=== PATIENT | female | born 1975 | race Caucasian/White ===

== ENCOUNTER 2021-04-13 13:24 | Emergency (ER) | payer OTHER, SELFPAY ==
--- NOTE | ~2021-04-13 | XR_ITS ---
EXAMINATION: XR ELBOW, LEFT XR ELBOW, RIGHT XR HAND-WRIST, LEFT XR HAND-WRIST, RIGHT CLINICAL INFORMATION: History of injury. Pain of the elbows, hands and wrists. COMPARISON: Prior radiographs of hand from 10/24/2018 TECHNIQUE: Right elbow, 3 views and left elbow, 3 views Right hand and wrist, 4 views and left hand and wrist, 4 views FINDINGS: Right elbow: Bones, joints and soft tissues are normal. No evidence of arthritis, fracture or subluxation. No elbow joint effusion. Left elbow: Bones, joints and soft tissues are normal. Right hand and wrist: Bones have normal alignment throughout the hand and wrist. No acute fracture or subluxation. Small well-corticated ossicle projects distal to the ulnar styloid. Carpal bones, metacarpals and phalanges are intact and the joint spaces are maintained. No erosions or periostitis. No focal soft tissue swelling. Left hand and wrist: Bones have normal alignment throughout the hand and wrist. The joint spaces are well-preserved. No fracture or subluxation. No erosions or periostitis. No focal soft tissue swelling. XR/XR hand wrist LT IMPRESSION: Normal radiographic examinations of the elbows, hands and wrists. No acute fracture or malalignment.
--- NOTE | ~2021-04-13 | XR_ITS ---
EXAMINATION: XR LUMBAR SPINE XR THORACIC SPINE CLINICAL INFORMATION: History of fall with back pain COMPARISON: None TECHNIQUE: Thoracic spine, AP and lateral views Lumbosacral spine, 3 views FINDINGS: Thoracic spine: There are 12 rib-bearing thoracic vertebra. The thoracic vertebra have normal density, height and alignment. The disc spaces are well-preserved. Mild spondylosis of the partially visualized lower cervical spine. The anterior and posterior elements have an intact appearance. No evidence of acute fracture or subluxation. Soft tissues are unremarkable. Lumbosacral spine: The lumbar vertebra have normal height and alignment. The disc spaces are well-preserved. The facet joints are normal. The sacrum and sacroiliac joints have a normal appearance. Moderate amount of fecal material is present in the nondilated colon. There are two small, 0.3 cm opacities that project over the left kidney and although these are likely bowel contents, it is not possible to exclude any small left renal calculi. XR/XR lumbar spine 2-3V IMPRESSION: * No acute abnormality. No evidence of fracture or malalignment in the thoracic or lumbosacral spine. * Possible small left renal calculi.
--- NOTE | ~2021-04-13 | XR_ITS ---
EXAMINATION: XR LUMBAR SPINE XR THORACIC SPINE CLINICAL INFORMATION: History of fall with back pain COMPARISON: None TECHNIQUE: Thoracic spine, AP and lateral views Lumbosacral spine, 3 views FINDINGS: Thoracic spine: There are 12 rib-bearing thoracic vertebra. The thoracic vertebra have normal density, height and alignment. The disc spaces are well-preserved. Mild spondylosis of the partially visualized lower cervical spine. The anterior and posterior elements have an intact appearance. No evidence of acute fracture or subluxation. Soft tissues are unremarkable. Lumbosacral spine: The lumbar vertebra have normal height and alignment. The disc spaces are well-preserved. The facet joints are normal. The sacrum and sacroiliac joints have a normal appearance. Moderate amount of fecal material is present in the nondilated colon. There are two small, 0.3 cm opacities that project over the left kidney and although these are likely bowel contents, it is not possible to exclude any small left renal calculi. XR/XR thoracic spine 3V IMPRESSION: * No acute abnormality. No evidence of fracture or malalignment in the thoracic or lumbosacral spine. * Possible small left renal calculi.
--- NOTE | ~2021-04-13 | XR_ITS ---
EXAMINATION: XR ELBOW, LEFT XR ELBOW, RIGHT XR HAND-WRIST, LEFT XR HAND-WRIST, RIGHT CLINICAL INFORMATION: History of injury. Pain of the elbows, hands and wrists. COMPARISON: Prior radiographs of hand from 10/24/2018 TECHNIQUE: Right elbow, 3 views and left elbow, 3 views Right hand and wrist, 4 views and left hand and wrist, 4 views FINDINGS: Right elbow: Bones, joints and soft tissues are normal. No evidence of arthritis, fracture or subluxation. No elbow joint effusion. Left elbow: Bones, joints and soft tissues are normal. Right hand and wrist: Bones have normal alignment throughout the hand and wrist. No acute fracture or subluxation. Small well-corticated ossicle projects distal to the ulnar styloid. Carpal bones, metacarpals and phalanges are intact and the joint spaces are maintained. No erosions or periostitis. No focal soft tissue swelling. Left hand and wrist: Bones have normal alignment throughout the hand and wrist. The joint spaces are well-preserved. No fracture or subluxation. No erosions or periostitis. No focal soft tissue swelling. XR/XR elbow RT min 3V IMPRESSION: Normal radiographic examinations of the elbows, hands and wrists. No acute fracture or malalignment.
--- NOTE | ~2021-04-13 | XR_ITS ---
EXAMINATION: XR ELBOW, LEFT XR ELBOW, RIGHT XR HAND-WRIST, LEFT XR HAND-WRIST, RIGHT CLINICAL INFORMATION: History of injury. Pain of the elbows, hands and wrists. COMPARISON: Prior radiographs of hand from 10/24/2018 TECHNIQUE: Right elbow, 3 views and left elbow, 3 views Right hand and wrist, 4 views and left hand and wrist, 4 views FINDINGS: Right elbow: Bones, joints and soft tissues are normal. No evidence of arthritis, fracture or subluxation. No elbow joint effusion. Left elbow: Bones, joints and soft tissues are normal. Right hand and wrist: Bones have normal alignment throughout the hand and wrist. No acute fracture or subluxation. Small well-corticated ossicle projects distal to the ulnar styloid. Carpal bones, metacarpals and phalanges are intact and the joint spaces are maintained. No erosions or periostitis. No focal soft tissue swelling. Left hand and wrist: Bones have normal alignment throughout the hand and wrist. The joint spaces are well-preserved. No fracture or subluxation. No erosions or periostitis. No focal soft tissue swelling. XR/XR elbow LT min 3V IMPRESSION: Normal radiographic examinations of the elbows, hands and wrists. No acute fracture or malalignment.
--- NOTE | ~2021-04-13 | XR_ITS ---
EXAMINATION: XR ELBOW, LEFT XR ELBOW, RIGHT XR HAND-WRIST, LEFT XR HAND-WRIST, RIGHT CLINICAL INFORMATION: History of injury. Pain of the elbows, hands and wrists. COMPARISON: Prior radiographs of hand from 10/24/2018 TECHNIQUE: Right elbow, 3 views and left elbow, 3 views Right hand and wrist, 4 views and left hand and wrist, 4 views FINDINGS: Right elbow: Bones, joints and soft tissues are normal. No evidence of arthritis, fracture or subluxation. No elbow joint effusion. Left elbow: Bones, joints and soft tissues are normal. Right hand and wrist: Bones have normal alignment throughout the hand and wrist. No acute fracture or subluxation. Small well-corticated ossicle projects distal to the ulnar styloid. Carpal bones, metacarpals and phalanges are intact and the joint spaces are maintained. No erosions or periostitis. No focal soft tissue swelling. Left hand and wrist: Bones have normal alignment throughout the hand and wrist. The joint spaces are well-preserved. No fracture or subluxation. No erosions or periostitis. No focal soft tissue swelling. XR/XR hand wrist RT IMPRESSION: Normal radiographic examinations of the elbows, hands and wrists. No acute fracture or malalignment.
[2021-04-13 13:48] VITALS: BP 115/66; PULSE 91; RESP 18; TEMP 35.9; O2SAT 96; BMI 25.0
[2021-04-13 15:36] VITALS: BP 114/67; PULSE 84; RESP 18; TEMP 36.8; O2SAT 95
[2021-04-13 15:53] LABS: UPreg QC Valid YES; Urine Pregnancy NEGATIVE (NEGATIVE)
[2021-04-13] MEDS: Cyclobenzaprine HCl 10 MG TABLET PO (16:16)
--- NOTE | 2021-04-13 16:22 | ED_ITS ---
HPI - Fall General Chief Complaint: Extremity Injury, Upper Stated Complaint: FALL ARM HEAD AND BACK INJ Time Seen by Provider: 04/13/21 14:41 Source: patient Mode of arrival: ambulatory Limitations: no limitations History of Present Illness HPI Narrative: 45-year-old female reports that she was sent to recovery [facility] and she had passed out on 04/04/2021 and she is unsure what actually happened but she reports she got there and she woke up with 2 nurses in her face and she was laying down on her back with her head facing all and she is unsure what happened. Although she reports since then she has been having pain to her head, neck, bilateral arms, upper back and lower back. She denies being on any blood thinners. She reports at that time she was seen at a local ER although did not receive any x-rays and she came here for further evaluation treatment because she continues to have pain. She just was released and got back home today. She denies any other injuries complaints or concerns at this time. MD complaint: fall Onset (ago): day(s) (Approximately 9 days ago) Fall from: standing Fall witnessed: yes, by living facility staff (At the recovery program) Place fall occurred: other (Recovery program) Loss of consciousness: yes Prolonged down time: unclear Location of injury: head, neck and back Severity: moderate Quality: aching Associated symptoms (after fall): headache and neck pain Related Data Previous Rx's Medication Instructions Recorded acetaminophen 500 mg tablet 1,000 mg PO QID PRN #14 tab 04/13/21 (Tylenol Extra Strength) cyclobenzaprine 10 mg tablet 10 mg PO Q8H PRN #14 tab 04/13/21 lidocaine HCl 4 % topical cream 1 appl TOPICAL BID PRN #120 g 04/13/21 (Aspercreme (lidocaine HCl)) Allergies Allergy/AdvReac Type Severity Reaction Status Date / Time aspirin [ASPIRIN] Allergy Unknown HIVES Verified 04/13/21 13:48 Review of Systems Review of Systems: Constitutional : No Fever, No Chills ENT/Mouth : No Ear Pain, No Hoarseness, No sore throat Eyes: No Eye Pain, No Swelling, No Redness, No Foreign Body Cardiovascular : No Chest Pain, No SOB Respiratory : No Cough, No Dyspnea Gastrointestinal : No Nausea, No Vomiting, No Diarrhea, No abdominal Pain Genitourinary : No Dysuria, No Hematuria Musculoskeletal : Positive bilateral elbow/forearm/hand and wrist joint pain, No Myalgias, No Joint Swelling Skin : No Skin lacerations, No rash Neuro : Positive fall with head injury with loss of consciousness with intermittent headaches, No Weakness, No Numbness, No Paresthesias, No Dizziness Psych : No Anxiety/Panic, No Depression Heme/Lymph: no easy bruising, no Lymphadenopathy Endocrine : No Polyuria, No Polydipsia Yes all other systems are reviewed and are negative [facility] Past Medical History Attestation statement: The following information was validated with the patient. Social History Social History Advance Directives: No Advance Directives Information Provided: No Patient : No Physical Exam Vital Signs: Vital Signs: Last Vital Signs Temp 98.2 F 04/13/21 15:36 Pulse 84 04/13/21 15:36 Resp 18 04/13/21 15:36 BP 114/67 04/13/21 15:36 Pulse Ox 95 04/13/21 15:36 Body Mass Index 25.0 vital signs have been reviewed as normal and appeared to be correct. Blood pressure normal. Heart rate normal. Respiration rate normal. Temperature normal. Oxygen saturation normal. Appearance: Alert. Oriented X3. No acute distress. Head: Normal external exam. Normocephalic. Atraumatic. No Clifford signs noted. No raccoon eyes noted Eyes: PERRLA. EOMI. Conjunctiva and sclera normal. Eyelids normal. ENT: EAC normal. TM's Normal. Pharynx normal. Uvula midline. Moist mucous membranes. No trismus noted. No drooling noted. No muffled voice noted. Neck: Normal inspection. Neck supple. FROM. No adenopathy. Thyroid Normal. No meningeal signs. No neck mass noted. Patient with tenderness palpation to bilateral paraspinous musculature to cervical region. No mid cervical tenderness step-offs or deformities are noted. Patient is neurointact bilaterally and distally on all 4 extremities. Reflexes intact bilaterally and distally on all 4 extremities. CVS: Normal heart rate and rhythm. Heart sound normal. Pulses normal throughout. No murmurs/rales/gallops. Respiratory: No respiratory distress. Painless inspiration. Breath sounds normal. No wheezes/rales/rhonchi noted. Chest nontender. No accessory muscle usage noted or decreased air movement noted. Abdomen: Soft and nontender. Bowel sounds normal in all 4 quadrants. No distention noted. No organomegaly noted. No visible injury noted. Back: No CVA tenderness. Full range of motion noted. No rashes/lesion/induration/fluctuance or signs of infection noted. Patient with tenderness palpation to bilateral paraspinous musculature to thoracic/lumbar region. No mid thoracic/lumbar tenderness step-offs or deformities are noted. Patient is neuro intact bilaterally this and all 4 extremities. Reflexes intact bilateral dyspnea on all 4 extremities. Skin: Skin warm and dry. Normal skin color. Normal skin turgor. Patient has scattered bruises throughout bilateral arms. No rashes/lesions/lacerations noted. Extremities: Patient with tenderness of patient to bilateral elbows/forearm/hand and wrist although she has full range of motion of all joints no obvious deformities are noted or obvious ligamentous or tendon injuries or infections. Otherwise all other Extremities exhibit normal range of motion and nontender. Neuro: Oriented X 3. No motor deficit. No sensory deficit. Reflexes normal. Normal steady gait. No focal neuro deficits noted. Vascular: + radial pulses/+ 2 distal pedal pulses/+2 dorsalis pedis b/l. Normal cap refill. No cyanosis noted to upper extremity nails and lower extremity toes nails. Course Course Course Narrative: 15:30pm - 45-year-old female reports that she was sent to recovery [facility] and she had passed out on 04/04/2021 and she is unsure what actually happened but she reports she got there and she woke up with 2 nurses in her face and she was laying down on her back with her head facing all and she is unsure what happened. Although she reports since then she has been having pain to her head, neck, bilateral arms, upper back and lower back. She denies being on any blood thinners. She reports at that time she was seen at a local ER although did not receive any x-rays and she came here for further evaluation treatment because she continues to have pain. She just was released and got back home today. She denies any other injuries complaints or concerns at this time. Plan: CT scan of brain/cervical spine, x-rays of thoracic spine/lumbar spine/bilateral elbows/bilateral hands and wrist. Provide symptomatic treatment with Tylenol with codeine and Flexeril then re-evaluate. Reevaluation(s) Reevaluation #1: - x-rays of bilateral elbows/hands and wrist negative for any acute processes. X-ray of thoracic and lumbar spine negative for any acute processes. Patient reports that she just wants to go home she does not want wait for the CT scan of brain/cervical spine therefore will DC home against medical advice with instructions to return if any new or worsening symptoms to follow up with her primary care provider. Patient understands agrees with this plan. Time: 16:56 MDM - Fall Medical Records Attestation: I reviewed the patient's medical records. Lab Data Attestation: I reviewed the patient's lab results. Labs: Lab Results 04/13/21 Range/Units 15:39 Urine Test NEGATIVE (NEGATIVE) Imaging Data Lumbar spine and thoracic spine x-rays: Attestation: I personally reviewed and interpreted this imaging study as follows: Radiologist's impression: FINDINGS: Thoracic spine: There are 12 rib-bearing thoracic vertebra. The thoracic vertebra have normal density, height and alignment. The disc spaces are well-preserved. Mild spondylosis of the partially visualized lower cervical spine. The anterior and posterior elements have an intact appearance. No evidence of acute fracture or subluxation. Soft tissues are unremarkable. Lumbosacral spine: The lumbar vertebra have normal height and alignment. The disc spaces are well-preserved. The facet joints are normal. The sacrum and sacroiliac joints have a normal appearance. Moderate amount of fecal material is present in the nondilated colon. There are two small, 0.3 cm opacities that project over the left kidney and although these are likely bowel contents, it is not possible to exclude any small left renal calculi. XR/XR thoracic spine 3V IMPRESSION: *? No acute abnormality. No evidence of fracture or malalignment in the thoracic or lumbosacral spine. *? Possible small left renal calculi.? X-ray bilateral elbows/wrists/hands: Attestation: I personally reviewed and interpreted this imaging study as follows: Radiologist's impression: FINDINGS: Right elbow: Bones, joints and soft tissues are normal. No evidence of arthritis, fracture or subluxation. No elbow joint effusion. Left elbow: Bones, joints and soft tissues are normal. Right hand and wrist: Bones have normal alignment throughout the hand and wrist. No acute fracture or subluxation. Small well-corticated ossicle projects distal to the ulnar styloid. Carpal bones, metacarpals and phalanges are intact and the joint spaces are maintained. No erosions or periostitis. No focal soft tissue swelling. Left hand and wrist: Bones have normal alignment throughout the hand and wrist. The joint spaces are well-preserved. No fracture or subluxation. No erosions or periostitis. No focal soft tissue swelling. XR/XR hand wrist RT IMPRESSION: Normal radiographic examinations of the elbows, hands and wrists. No acute fracture or malalignment.? Discharge Plan Discharge Clinical Impression: Sprain of right elbow, Sprain of elbow, left, Sprain and strain of right wrist, Sprain and strain of left wrist, Concussion, Cervical strain, Lumbar strain, Superficial bruising, Head injury Patient Disposition: Left Against Medical Advice Instructions: Cervical Strain (ED), Concussion (ED), Head Injury (ED), Against Medical Advice (ED), Bone Bruise (ED) Prescriptions: New cyclobenzaprine 10 mg tablet 10 mg PO Q8H PRN (Reason: Muscle spasm) Qty: 14 RF: 0 acetaminophen [Tylenol Extra Strength] 500 mg tablet 1,000 mg PO QID PRN (Reason: fever or pain) Qty: 14 RF: 0 lidocaine HCl [Aspercreme (lidocaine HCl)] 4 % cream 1 appl topical BID PRN (Reason: pain) Qty: 120 RF: 0 Referrals: Piper Oneil MD [Primary Care Provider] - 2 days Print Language: Belarusian
== END 2021-04-13 17:03 | disposition left against medical advice (07) ==
PROVIDERS: Physician Assistant Medical; Emergency Provider Emergency Medicine Emergency Medical Services; PCP Internal Medicine
DX: S53.401A Unspecified sprain of right elbow, initial encounter (principal); S53.402A Unspecified sprain of left elbow, initial encounter; S63.501A Unspecified sprain of right wrist, initial encounter; S66.911A Strain of unspecified muscle, fascia and tendon at wrist and hand level, right hand, initial encounter; S63.502A Unspecified sprain of left wrist, initial encounter; S66.912A Strain of unspecified muscle, fascia and tendon at wrist and hand level, left hand, initial encounter; S06.0X0A Concussion without loss of consciousness, initial encounter; S16.1XXA Strain of muscle, fascia and tendon at neck level, initial encounter; S39.012A Strain of muscle, fascia and tendon of lower back, initial encounter; W19.XXXA Unspecified fall, initial encounter; Y93.9 Activity, unspecified; Y92.199 Unspecified place in other specified residential institution as the place of occurrence of the external cause; Y99.9 Unspecified external cause status
CPT/HCPCS: 72072; 72100; 73080; 73110; 73130; 81025; 99283; 99284

== ENCOUNTER 2021-07-22 10:11 | Outpatient (REF) | payer OTHER, SELFPAY ==
[2021-07-22 11:20] LABS: Estimated Average Glucose 85 mg/dL; Hemoglobin A1c % 4.6 %
[2021-07-22 11:36] LABS: Alanine Aminotransferase 15 U/L (0-31); Alkaline Phosphatase 84 U/L (39-117); Anion Gap 10 (12-20); Aspartate Amino Transferase 14 U/L (5-31); Bilirubin Total 0.2 mg/dL (0.0-1.0); Blood Urea Nitrogen 6 mg/dL (9-16); Calcium 9.3 mg/dL (8.4-10.2); Carbon Dioxide 26 mmol/L (22-29); Chloride 110 mmol/L (96-108); Estimated Glomerular Filt Rate > 60; Glucose Random 101 mg/dL (60-115); Potassium 4.8 mmol/L (3.3-5.1); Sodium 141 mmol/L (135-145)
[2021-07-22 11:57] LABS: Free T4 (Free Thyroxine) 0.52 ng/dL (0.71-1.85); Thyroid Stimulating Hormone 0.68 uIU/mL (0.32-4.0)
== END 2021-07-22 10:12 | disposition home or self-care (01) ==
LOC: HO.LAB 10:11
PROVIDERS: Absent Provider Internal Medicine; PCP Internal Medicine; Visit Provider Registered Nurse
DX: F31.81 Bipolar II disorder (principal); Z51.81 Encounter for therapeutic drug level monitoring; Z79.899 Other long term (current) drug therapy
CPT/HCPCS: 36415; 80053; 80178; 83036; 84439; 84443

== ENCOUNTER 2023-09-09 14:13 | Emergency (ER) | payer OTHER, SELFPAY ==
[2023-09-09 14:22] VITALS: BP 124/70; PULSE 70; O2SAT 98
[2023-09-09 14:32] VITALS: BP 114/67; PULSE 86; RESP 16; TEMP 36.5; O2SAT 100; BMI 26.4
--- NOTE | 2023-09-09 14:34 | ED_ITS ---
HPI - General Adult General Chief complaint: Upper Respiratory Symptoms Stated complaint: FLU LIKE SYMPTOMS Time Seen by Provider: 09/09/23 17:16 Source: patient, family (Staff member from [facility]), EMS and RN notes reviewed Mode of arrival: EMS Limitations: no limitations History of Present Illness HPI narrative: 48-year-old female presents to the ED today via EMS from [facility] for evaluation of headache, body aches, hoarse voice, fatigue, and sore throat that began today. She states that there are many people coming in and out of the facility so it is possible that she has been around someone ill. Denies fever, chills, vision changes, ear pain, difficulty swallowing, cough, sputum production, chest pain, shortness of breath, dyspnea, palpitations, lower extremity pain/swelling. UTD on all vaccinations, including influenza. Of note, staff member from [facility] is at bedside to member of congress patient as she was admitted to the facility one week ago for SI. Related Data Previous Rx's Medication Instructions Recorded acetaminophen 500 mg tablet 1,000 mg (2 x 500 mg) PO QID PRN 04/13/21 (Tylenol Extra Strength) fever or pain #14 tabs cyclobenzaprine 10 mg tablet 10 mg PO Q8H PRN Muscle spasm #14 04/13/21 tabs lidocaine HCl 4 % topical cream 1 appl topical BID PRN pain #120 04/13/21 (Aspercreme (lidocaine HCl)) grams Allergies Allergy/AdvReac Type Severity Reaction Status Date / Time aspirin [ASPIRIN] Allergy Unknown HIVES Verified 04/13/21 13:48 Review of Systems Review of Systems: Constitutional: No fever, chills, night sweats, weight changes, +fatigue ENT/Mouth: No ear pain, hearing loss, nasal congestion, sinus pain, rhinorrhea, +sore throat Eyes: No eye pain, swelling, redness, vision changes, discharge Cardio: No chest pain, palpitations, TARIQ, orthopnea, peripheral edema Pulm: No SOB, cough, sputum, wheezing, dyspnea, hemoptysis GI: No nausea, vomiting, hematemesis, abdominal pain, diarrhea, constipation, hematochezia, melena : No irregular bleeding, dysuria, frequency, urgency, hesitancy, hematuria, flank pain, urinary flow changes, urinary incontinence or retention MSK: No back pain, neck pain, joint pain, +myalgias Skin: No lesions, rashes Neuro: No weakness, numbness, paresthesias, LOC, dizziness, +headache Psych: No anxiety/panic, depression, SI/HI, AH/VH All other systems reviewed and are negative. Neurologic: Denies confusion Psychiatric: Psychiatric: Denies confusion [facility] Past Medical History Attestation statement: The following information was validated with the patient. Source: old records reviewed and nursing notes reviewed Social History Social History Smoked in Last 30 Days: No Advance Directives: No Advance Directives Information Provided: No Physical Exam ED Vital Signs: Vital Signs - 24 hr 09/09/23 14:32 09/09/23 17:54 Temperature 97.7 F 97.3 F Pulse Rate 86 85 Respiratory Rate 16 16 Blood Pressure 114/67 106/54 L Pulse Oximetry 100 96 Oxygen Delivery Method Room Air Room Air BMI result Body Mass Index 26.4 Vital signs stable, afebrile Const General: cooperative, healthy appearing, comfortable, no acute distress, alert and awake; No confusion or patient obtunded Orientation/consciousness: patient oriented x3, No confusion and No patient obt unded Limitations: no limitations HENMT Other: + posterior oropharynx slightly erythematous. No edema. No tonsillar exudates or peritonsillar masses. Uvula midline. Controlling secretions and speaking in complete sentences. Head: Yes normal to inspection, Yes No palpable skull fracture present, Yes normocephalic and Yes atraumatic Ears: hearing grossly normal bilaterally, external ears normal, TM's normal bilaterally, EAC's normal, mastoids normal and no periauricular adenopathy General nose exam: Normal external nose present Eyes General: appearance normal, both eyes and all related structures Conjunctivae: conjunctivae normal Sclerae: sclerae normal Pupils: Equal, round and reactive pupils present Neck Neck: Yes normal visual inspection, Yes full ROM, Yes no lymphadenopathy and Yes no meningeal signs Resp Effort & Inspection: normal respiratory effort and able to speak in complete sentences Auscultation: clear to auscultation bilaterally Cardio Rate: regular rate Rhythm: regular rhythm GI Inspection: Yes normal to inspection Palpation (GI): Soft to palpation and nontender General: Yes no CVA tenderness Back/Spine/Pelvis Back: no CVA tenderness Skin General skin exam: no rashes or lesions noted Neuro General: patient oriented x3, gait normal, moves all extremities, no meningeal signs, no focal motor deficits, No confusion and No patient obtunded Cranial nerves: Yes Equal, round and reactive pupils present Extrem General: Yes normal to inspection Course Course Course Narrative: This is a rapid medical exam: Additional HPI, ROS, PE not included below will be deferred to primary provider. Patient is a 48-year-old female presenting to the ED with complaint of sore throat and hoarse voice as well as body aches and fatigue today. Slept until 12:30 which is not usual for her, then napped again after lunch. Plan: strep and viral swabs Reevaluation(s) Reevaluation #1: 9480-- Patient has tested negative for COVID, flu, RSV, strep throat. Physical exam is not consistent with strep throat so antibiotics will not be prescribed. She likely has a viral infection given contact with multiple other individuals within the facility. I informed patient of all results. She will get one dose of viscous lidocaine in ED for throat pain. 1813-- I spoke with RN at [facility] who informed me that the patient was sent to the ED today for a urine tox screen. She stated that yesterday evening the patient began exhibiting odd behaviors. This resolved some time this morning and she has been AOX3 since. They are concerned about acute drug use, prompting them to transfer her to the ED for testing. Per request, patient's urine was sent for UA and UDS. > Neither I, nor the RN at bedside were informed of this upon EMS arrival. Both EMS and patient informed our RN of her flu-like symptoms. Upon my initial evaluation, this is the story I received as well. She does not seem acutely altered however occasionally slurs her words. AOX4. 1846-- Patients urine is positive for infection. I informed patient of results. She tells me she's had burning with urination and urinary hesitancy for the past week. She denies flank or abdominal pain, hematuria, fevers, n/v. No concern for urosepsis as vitals are stable and patient is nontoxic appearing. Urine also positive for cocaine and TCH. > Patient will be given one dose of ceftin in ED for acute UTI. I personally spoke with RN at [facility] and advised them to place patient on 7 days of Ceftin upon return. > patient to be transported back to [facility] via EMS. Patient has remained stable throughout ED visit today. Discussed worrisome signs and symptoms and when to return to the ED. All questions answered at this time. Patient is agreeable with disposition and stable for discharge. Medications Administered Discontinued Medications Generic Name Dose Route Start Last Admin Trade Name Melia PRN Reason Stop Dose Admin Cefuroxime Axetil 250 mg 09/09/23 18:46 09/09/23 18:58 Cefuroxime Axetil 250 Mg Tablet PO 09/09/23 18:47 250 mg ONCE ONE Administration Lidocaine HCl 15 ml 09/09/23 17:22 09/09/23 17:56 Lidocaine Hcl Viscous 2 % 15 Ml Solution MUCOUS MEM 09/09/23 17:23 Not Given ONCE ONE Medical Decision Making Medical Decision Making [facility] Narrative: 48-year-old female presents to the ED today via EMS from [facility] for evaluation of headache, body aches and sore throat that began today. Vital signs stable, afebrile. Nontoxic appearing and in NAD. Occasionally slurs her words. B/l EACs and TMs wnl. Posterior oropharynx wnl. Abd soft, ND/NT, no rebound/ guarding. No CVAT b/l. No rashes. Differential diagnosis includes viral syndrome, strep throat, bronchitis, laryngitis. Low suspicion for mono, MACH[employer], retropharyngeal abscess, epiglotitis. Plan for viral serology, strep swab, and re-evaluation. Differential Diagnosis Differential Diagnoses: The differential diagnosis associated with the presentation includes As above Admission/Observation Not indicated Lab Data [facility] Lab Attestation statement: I reviewed the patient's lab results. As above Labs: Lab Results 09/09/23 09/09/23 Range/Units 14:41 18:24 Urine Color Yellow Urine Appearance Cloudy Urine pH 6.5 (5.0-9.0) Ur Specific [place] 1.020 (1.005-1.025) Urine Protein Negative (Neg-Trace) mg/dL Urine Glucose (UA) Negative (Negative) mg/dL Urine Ketones Trace (Negative) mg/dL Urine Blood Trace H (Negative) Urine Nitrite Positive H (Negative) Ur Leukocyte Esterase Small (1+) H (Negative) Urine RBC 6-10 H (0-2) /HPF Urine WBC 21-50 H (0-5) /HPF Ur Squamous Epith Cells 0-2 (0-2) /HPF Urine Bacteria 4+ (None Seen) Hyaline Casts 0-2 (0-2) /LPF Urine Opiates Screen Not Detected (Not Detect) Urine Fentanyl Screen Not Detected (Not Detect) Ur Barbiturates Screen Not Detected (Not Detect) Ur Phencyclidine Scrn Not Detected (Not Detect) Ur Amphetamines Screen Not Detected (Not Detect) U Benzodiazepines Scrn Not Detected (Not Detect) Urine Cocaine Screen POSITIVE H (Not Detect) U Marijuana (THC) Screen POSITIVE H (Not Detect) Influenza Type A (PCR) NEGATIVE (Negative) Influenza Type B (PCR) NEGATIVE (Negative) RSV RNA Qual (PCR) NEGATIVE (Negative) SARS-CoV-2 RNA (RT-PCR) NEGATIVE (Negative) S. pyogenes GrpA ADAIR Negative (Negative) Independent Historian Clinical information obtained from an independent historian. History obtained from or confirmed by: EMS and Other (Staff member from [facility]) Prescription Management I considered prescription management with: Pain Medication and Antibiotic (ceftin) Social Determinants Patient?s care significantly limited by Social Determinants of Health including: Alcoholism and drug addiction in family and Other Social Determinant of Health Discharge Plan Discharge Clinical Impression: Viral infection, Urinary tract infection Patient Disposition: Home, Self-Care Instructions: Upper Respiratory Infection (ED), Viral Syndrome (ED) Additional Instructions: You were evaluated in the emergency department today for flu-like symptoms. You tested negative for COVID, flu, RSV, strep throat. You likely have a viral upper respiratory infection that does not require antibiotic treatment. You may take [id number] cough medicine such is Robitussin. Alter ibuprofen and Tylenol for fevers and body aches. If symptoms persist or worsen please return to the emergency department. The case of an emergency call 911. Additionally you were noted to have a urinary tract infection. You were given 1 dose of Ceftin in the emergency department. I spoke with staff at [facility] who will be giving you a 7 day course of this. You will take 250 mg twice a day Return to the ED with new or worsening symptoms.. Prescriptions: No Action cyclobenzaprine 10 mg tablet 10 mg PO Q8H PRN (Reason: Muscle spasm) Qty: 14 0RF acetaminophen [Tylenol Extra Strength] 500 mg tablet 1,000 mg PO QID PRN (Reason: fever or pain) Qty: 14 0RF lidocaine HCl [Aspercreme (lidocaine HCl)] 4 % cream 1 appl topical BID PRN (Reason: pain) Qty: 120 0RF Interventions: ED Discharge Assessment Last Done: 09/09/23 17:54 Discharge Date/Time: 09/09/23 19:01
[2023-09-09 15:01] LABS: IDNOW Serial# 08D9AD1C; Strep A Nucleic Acid Negative (Negative)
[2023-09-09 15:32] LABS: Influenza A PCR NEGATIVE (Negative); Influenza B PCR NEGATIVE (Negative); Resp Syncy Virus RNA Qual PCR NEGATIVE (Negative); SARS COV2 PCR INHOUSE NEGATIVE (Negative)
[2023-09-09 17:54] VITALS: BP 106/54; PULSE 85; RESP 16; TEMP 36.3; O2SAT 96
--- NOTE | 2023-09-09 17:55 | PC.NURSE ---
pt awaiting transport back to [facility] via EMS, [facility] called and given report by Rachell STEINER
[2023-09-09 18:33] LABS: Appearance Urine Cloudy; Color Urine Yellow; Glucose Urine UA Negative (Negative); Leukocyte Esterase Urine Small (1+) (Negative); Nitrite Urine Positive (Negative); PH 6.5 (5.0-9.0); UMIC TRIGGER UACC YES; Urine Blood Trace (Negative); Urine Ketones Trace mg/dL (Negative); Urine Protein Negative (Neg-Trace)
[2023-09-09 18:36] LABS: Bacteria Urine 4+ (None Seen); Hyaline Casts Urine 0-2 /LPF (0-2); Squamous Epithelial Cell Urine 0-2 /HPF (0-2); UACC Culture Trigger YES; WBC Urine 21-50 /HPF (0-5)
[2023-09-09 18:40] LABS: Amphetamine Screen Urine Not Detected (Not Detect); Barbiturates, Urine Not Detected (Not Detect); Benzodiazepines Screen Urine Not Detected (Not Detect); Cannabinoid Screen Urine POSITIVE (Not Detect); Cocaine Screen Urine POSITIVE (Not Detect); Fentanyl, urine Not Detected (Not Detect); Opiate Screen Urine Not Detected (Not Detect); Phencyclidine Screen Urine Not Detected (Not Detect)
[2023-09-09] MEDS: cefuroxime axetiL 250 MG TABLET PO (18:58)
== END 2023-09-09 19:01 | disposition home or self-care (01) ==
PROVIDERS: Physician Assistant Medical; Registered Nurse Emergency; Emergency Provider Student in an Organized Health Care Education/Training Program; PCP Internal Medicine
DX: B34.9 Viral infection, unspecified (principal); N39.0 Urinary tract infection, site not specified; Z11.52 Encounter for screening for COVID-19; Z20.828 Contact with and (suspected) exposure to other viral communicable diseases
CPT/HCPCS: 0241U; 80307; 81001; 87086; 87088; 87186; 87651; 99284